=== PATIENT | male | born 1985 | race Caucasian/White ===

== ENCOUNTER 2021-09-09 08:26 | Emergency (ER) | payer SELFPAY ==
[~2021-09-09 08:26] MED LIST: BACTRIM DS TAB1 EACH PO; TYLENOL 325MG325 MG PO
[2021-09-09] MEDS ORDERED: Voltaren Gel 1 % TOP (10:53)
[2021-09-09] MEDS ORDERED: NORFLEX 100 MG100 MG PO (10:53)
== END 2021-09-09 11:23 | disposition home or self-care (01) ==
LOC: ER1 08:26
DX: S22.41XA Multiple fractures of ribs, right side, initial encounter for closed fracture (principal); F17.210 Nicotine dependence, cigarettes, uncomplicated; W01.0XXA Fall on same level from slipping, tripping and stumbling without subsequent striking against object, initial encounter; Y92.149 Unspecified place in prison as the place of occurrence of the external cause
CPT/HCPCS: 71111; 96372; 99283; J1885

== ENCOUNTER 2021-09-17 10:20 | Emergency (ER) | payer SELFPAY ==
[~2021-09-17 10:20] MED LIST changes: +NORFLEX 100 MG100 MG PO; +Voltaren Gel 1 % TOP
[2021-09-17] MEDS ORDERED: ZANAFLEX4 M1 PO (12:58)
== END 2021-09-17 12:35 | disposition home or self-care (01) ==
LOC: ER1 10:20
DX: S22.31XA Fracture of one rib, right side, initial encounter for closed fracture (principal); F17.210 Nicotine dependence, cigarettes, uncomplicated; W19.XXXA Unspecified fall, initial encounter
CPT/HCPCS: 71101; 96372; 99283; J1885

== ENCOUNTER 2021-11-05 12:43 | Emergency (ER) | payer MEDICAID ==
[~2021-11-05 12:43] MED LIST changes: +ZANAFLEX4 M1 PO
[2021-11-05 15:22] LABS: HEMOGLOBIN 17.4 gm/dl (14.0-17.5); RED BLOOD COUNT 5.55 M/UL (4.20-5.50); WHITE BLOOD COUNT 11.7 K/UL (4.5-11.0)
[2021-11-05 15:42] LABS: BUN/CREATININE RATIO 18 (0-10)
[2021-11-05] MEDS ORDERED: ATIVAN0.5 MG PO (16:12)
== END 2021-11-05 16:30 | disposition home or self-care (01) ==
LOC: ER1 12:43
PROVIDERS: Emergency Medicine
DX: F41.9 Anxiety disorder, unspecified (principal); R51.9 Headache, unspecified; F17.200 Nicotine dependence, unspecified, uncomplicated
CPT/HCPCS: 71045; 80048; 84484; 85025; 93005; 99285